=== PATIENT | female | born 1955 | race Hispanic/Latino ===

== ENCOUNTER 2017-10-03 14:24 | Emergency (ER) | payer OTHER, SELFPAY ==
[2017-10-03 15:00] LABS: BASOPHILS % (AUTO) 0.6 % (0.0-5.0); EOSINOPHILS % (AUTO) 2.2 % (0.0-8.0); LYMPHOCYTES % (AUTO) 35.8 % (21.0-51.0); MEAN CORPUSCULAR HEMOGLOBIN 30.6 pg (27.0-33.0); MEAN CORPUSCULAR HGB CONC 34.9 g/dL (32.0-36.0); MEAN CORPUSCULAR VOLUME 87.8 fL (79-99); MONOCYTES % (AUTO) 8.7 % (3.0-13.0); NEUTROPHILS % (AUTO) 52.7 % (40.0-77.0); PLATELET COUNT (AUTO) 254 K/uL (130-400); RED BLOOD CELL COUNT(AUTO) 4.67 MIL/uL (4.00-5.50); RED CELL DISTRIBUTION WIDTH 12.8 % (11.0-15.5); WHITE BLOOD COUNT (AUTO) 6.7 K/uL (4.8-10.8)
[2017-10-03 15:12] LABS: CREATININE 0.8 mg/dL (0.5-1.5); POTASSIUM 3.7 mmol/L (3.5-5.1)
[2017-10-03 15:20] LABS: ALBUMIN 3.5 g/dL (3.5-5.0); BILIRUBIN,TOTAL 0.4 mg/dL (0.2-1.0); TOTAL PROTEIN, SERUM 7.6 g/dL (6.0-8.3)
[2017-10-03] MEDS ORDERED: SIMETHICONE 80 MG TAB.CHEW ONE (15:39)
[2017-10-03] MEDS ORDERED: HYOSCYAMINE SULFATE 0.125 MG TAB.SUBL SL ONE (15:39)
[2017-10-03] MEDS ORDERED: ONDANSETRON ODT 4 MG TAB ONE (15:40)
[2017-10-03 16:06] LABS: APPEARANCE,URINE Clear (CLEAR); BILIRUBIN,URINE Negative (NEGATIVE); COLOR,URINE Yellow (YELLOW); GLUCOSE, URINE (UA) Negative (NEGATIVE); KETONES,URINE Negative (NEGATIVE); LEUKOCYTE ESTERASE ,URINE Negative (NEGATIVE); NITRATE,URINE Negative (NEGATIVE); OCCULT BLOOD,URINE Negative (NEGATIVE); PH,URINE 6.5 (5.0-8.0); PROTEIN,URINE Negative (NEGATIVE); UROBILINOGEN,URINE 0.2 mg/dL (0.2-1.0)
== END 2017-10-03 16:43 | disposition home or self-care (01) ==
LOC: EDH 14:24
DX: J02.9 Acute pharyngitis, unspecified (principal); R19.7 Diarrhea, unspecified; R11.0 Nausea; E11.9 Type 2 diabetes mellitus without complications; Z88.8 Allergy status to other drugs, medicaments and biological substances
CPT/HCPCS: 36415; 80053; 81003; 83690; 85025; 87880; 93005

== ENCOUNTER 2018-11-13 03:18 | Emergency (ER) | payer OTHER ==
[2018-11-13 04:02] LABS: APPEARANCE,URINE Clear (CLEAR); BILIRUBIN,URINE Negative (NEGATIVE); COLOR,URINE Yellow (YELLOW); GLUCOSE, URINE (UA) TRACE mg/dL (NEGATIVE); KETONES,URINE Negative (NEGATIVE); LEUKOCYTE ESTERASE ,URINE Negative (NEGATIVE); NITRATE,URINE Negative (NEGATIVE); OCCULT BLOOD,URINE Negative (NEGATIVE); PH,URINE 7.5 (5.0-8.0); PROTEIN,URINE Negative (NEGATIVE); UROBILINOGEN,URINE 0.2 mg/dL (0.2-1.0)
[2018-11-13 04:02] LABS: BASOPHILS % (AUTO) 0.7 % (0.0-5.0); EOSINOPHILS % (AUTO) 1.5 % (0.0-8.0); LYMPHOCYTES % (AUTO) 23.9 % (21.0-51.0); MEAN CORPUSCULAR HEMOGLOBIN 31.5 pg (27.0-33.0); MEAN CORPUSCULAR HGB CONC 35.4 g/dL (32.0-36.0); MEAN CORPUSCULAR VOLUME 88.9 fL (79-99); MONOCYTES % (AUTO) 5.6 % (3.0-13.0); NEUTROPHILS % (AUTO) 68.3 % (40.0-77.0); NUCLEATED RED BLOOD CELLS 0.1 % (0.0-0.19); PLATELET COUNT (AUTO) 260 K/uL (130-400); RED BLOOD CELL COUNT(AUTO) 4.72 MIL/uL (4.00-5.50); RED CELL DISTRIBUTION WIDTH 12.7 % (11.0-15.5); WHITE BLOOD COUNT (AUTO) 10.1 K/uL (4.8-10.8)
[2018-11-13 04:15] LABS: CREATININE 0.6 mg/dL (0.5-1.5); POTASSIUM 3.9 mmol/L (3.5-5.1)
[2018-11-13 04:16] LABS: INR 0.95 (0.85-1.15); PARTIAL THROMBOPLASTIN TIME 27.3 SEC (26.3-35.5)
[2018-11-13 04:20] LABS: ALBUMIN 3.8 g/dL (3.5-5.0); BILIRUBIN,TOTAL 0.3 mg/dL (0.2-1.0); TOTAL PROTEIN, SERUM 7.7 g/dL (6.0-8.3)
[2018-11-13] MEDS ORDERED: HYOSCYAMINE SULFATE 0.125 MG TAB.SUBL SL ONE (05:05)
[2018-11-13] MEDS ORDERED: ACETAMINOPHEN EXTRA STRENGTH 500 MG TABLET ONE (05:57)
== END 2018-11-13 06:18 | disposition home or self-care (01) ==
LOC: EDH 03:18
DX: R10.84 Generalized abdominal pain (principal); E11.65 Type 2 diabetes mellitus with hyperglycemia; M19.90 Unspecified osteoarthritis, unspecified site; Z88.8 Allergy status to other drugs, medicaments and biological substances; Z90.710 Acquired absence of both cervix and uterus
CPT/HCPCS: 36415; 74176; 80053; 81003; 82150; 82550; 83690; 84484; 85025; 85610; 85730; 93005; 96360

== ENCOUNTER → 2021-01-06 | Outpatient (CLI) | payer OTHER | END | disposition home or self-care (01) | LOC: OIH 14:27 | PROVIDERS: ATTEND Internal Medicine | DX: M79.672 Pain in left foot (principal) | CPT/HCPCS: 73620 ==

== ENCOUNTER → 2022-02-02 | Outpatient (CLI) | payer OTHER | END | disposition home or self-care (01) | LOC: RAH 12:12 | PROVIDERS: ATTEND Internal Medicine | DX: M70.42 Prepatellar bursitis, left knee (principal) | CPT/HCPCS: 76882 ==

== ENCOUNTER 2024-10-06 12:08 | Emergency (ER) | payer OTHER ==
[~2024-10-06] VITALS: Ht 160 cm; Wt 67.6 kg
--- NOTE | 2024-10-06 12:33 | ERN ---
General Chief Complaint: Headache Stated Complaint: HEADACHE Time Seen by MD: 12:12 History of Present Illness Initial Comments 69F presents for ROCK x 1 month. She reports that about a month ago she had a diarrheal illness with vomiting. The symptoms resolved, but since then she has been having headaches. Most days. She describes the pain as moderate, bilateral temporal region. She denies vision changes or vomiting. She had denies neck stiffness or back pain. She denies any falls or trauma. She denies any focal neurologic deficits. She denies blood thinners. No recent viral URI type symptoms. No sore throat. She reports that the pain comes and goes sporadically. She has been taking [id number] Tylenol which provides some relief then the pain returns. She went to her PCP and was told to take OTC medications as needed. Allergies: Coded Allergies: No Known Drug Allergies (Unverified Allergy, Unknown, 10/06/24) Home Meds Active Scripts Butalb/Acetaminophen/Caffeine (Fioricet) 50 Mg-325 Mg-40 Mg Tab, 1 TAB PO QID PRN for headache for 10 Days, #30 TAB Prov:MARY BETH SHAW 10/06/24 Past Medical History Past Medical History: Diabetes-Type II Past Surgical History: Hysterectomy Surgical History Other: ABD HERNIA REPAIR ROS Dictation CONSTITUTIONAL: No chills, no fever, no weakness, no diaphoresis, no malaise. HEAD/FACE: No signs of trauma. EENT: No eye pain, no blurred vision, no tearing, no double vision, no ear pain, no ear discharge, no nose pain, no nasal congestion, no throat pain, no throat swelling, no mouth pain. RESPIRATORY: No cough, no orthopnea, no SOB, no stridor, no wheezing. CARDIOVASCULAR: No chest pain, no edema, no palpitations, no syncope. GASTROINTESTINAL/ABDOMINAL: No abdominal pain, no constipation, no diarrhea, no nausea, no vomiting. GENITOURINARY: No abnormal discharge, no dysuria, no frequent urination, no hematuria. No complaints of pain in the genitals. MUSCULOSKELETAL: No back pain, no gout, no joint pain, no joint swelling, no muscle pain, no muscle stiffness, no neck pain. INTEGUMENTARY: No change in color, no change in hair/nails, no dryness, no lesion, no lumps, no rash. NEUROLOGICAL/PSYCH: Headache HEMATOLOGIC/LYMPHATIC: Not anemic, no history of blood clots, no apparent bleeding, no bruising, glands not swollen. All Systems Negative, Except as Noted. Physical Exam Physical Exam Dictation VITAL SIGNS: Reviewed. GENERAL APPEARANCE: Alert, oriented x3, no acute distress. HEAD AND FACE: Non-traumatic. EYES: PERRL, pink conjunctivas, eyelid no trauma, anterior chamber clear. EARS: Pinnas intact and no signs of trauma or erythema. Ear canals clear and no discharge. TMs no erythema. NOSE: No discharge, no bleeding. OROPHARYNX: Mouth normal, teeth no caries, tongue pink. Pharynx clear, no erythema. Tonsils no exudates, no abscesses noted. Mucous membrane moist. NECK: Supple, non-tender, no thyromegaly, no masses, no JVD, no bruits. BREAST: Deferred. CHEST: No tenderness, no crepitus, no paradoxical movement, no retractions. LUNGS: Clear, well-ventilated, symmetric, no rales, no wheezing, no rhonchi, no stridor, good breath sounds bilaterally. HEART: Regular rate, regular rhythm, no murmur, no gallops. VASCULAR: No peripheral edema. ABDOMEN: Soft, positive bowel sounds, nondistended, no guarding, nontender, no rebound, no masses no hepatomegaly, no splenomegaly, no Velasquez's sign, no hernias. RECTAL: Deferred. GENITAL: Deferred. NEUROLOGICAL: Normal speech, gross motor function intact, gross sensory function intact. MUSCULOSKELETAL: Neck nontender, full range of motion, back nontender, full range of motion. EXTREMITIES: Nontender, full range of motion. SKIN: Color pink, dry, no turgor, no rash, no lacerations, no abrasions, no contusions. LYMPHATICS: Deferred. Results Laboratory and Microbiology Lab and Micro Result Laboratory Tests Test 10/06/24 13:10 White Blood Count 6.8 K/uL (4.8-10.8) Red Blood Count 4.87 MIL/uL (4.00-5.50) Hemoglobin 14.8 g/dL (12.0-16.0) Hematocrit 43.9 % (36-48) Mean Corpuscular Volume 90.1 fL (79-99) Mean Corpuscular Hemoglobin 30.4 pg (27.0-33.0) Mean Corpuscular Hemoglobin Concent 33.7 g/dL (32.0-36.0) Red Cell Distribution Width 12.3 % (11.0-15.5) Platelet Count 216 K/uL (130-400) Mean Platelet Volume 10.0 fL (7.5-10.5) Immature Granulocyte % (Auto) 0.1 % (0-1) Neutrophils (%) (Auto) 56.6 % (40.0-77.0) Lymphocytes (%) (Auto) 34.1 % (21.0-51.0) Monocytes (%) (Auto) 6.3 % (3.0-13.0) Eosinophils (%) (Auto) 2.6 % (0.0-8.0) Basophils (%) (Auto) 0.3 % (0.0-5.0) Neutrophils # (Auto) 3.9 K/uL (1.8-7.7) Lymphocytes # (Auto) 2.3 K/uL (1.0-4.8) Monocytes # (Auto) 0.4 K/uL (0.1-1.0) Eosinophils # (Auto) 0.18 K/uL (0.00-0.70) Basophils # (Auto) 0.02 K/uL (0.00-0.20) Absolute Immature Granulocyte (auto 0.01 K/uL (0-1) Nucleated Red Blood Cells 0.0 % (0.0-0.19) Erythrocyte Sedimentation Rate 4 MM/HR (0-30) Prothrombin Time 11.1 SEC (9.6-11.6) Prothromb Time International Ratio 1.05 (0.85-1.15) Activated Partial Thromboplast Time 25.6 SEC (26.3-35.5) L Sodium Level 134 mmol/L (136-145) L Potassium Level 3.9 mmol/L (3.5-5.1) Chloride Level 101 mmol/L (101-111) Carbon Dioxide Level 24 mmol/L (21-32) Blood Urea Nitrogen 9 mg/dL (7-18) Creatinine 0.6 mg/dL (0.5-1.0) Glomerular Filtration Rate Calc 97 mL/min (>90) Random Glucose 169 mg/dL (70-105) H Total Calcium 9.1 mg/dL (8.5-10.1) Total Creatine Kinase 105 U/L (21-232) # Troponin I High Sensitivity 4.5 ng/L (4-50) C-Reactive Protein, Quantitative 1.70 mg/L (0.5-3.0) B-Type Natriuretic Peptide 41 pg/mL (0-100) MDM CC: Headache times a month Historian: Patient Comorbidities: Diabetes Limitations by social determinants of health: None Differential diagnosis: Benign headache, subarachnoid bleed, tumor, electrolyte abnormality, infection, other Labs (independently ordered and interpreted by me ): CBC is normal no leukocytosis or anemia. Sed rate is normal. CRP is normal. Electrolytes normal. CK normal. Troponin normal. BNP normal. Coags normal. Imaging. CT head without contrast ( independently interpreted by me ): No acute bleeding or major abnormalities. EKG: Sinus rhythm rate of 69 normal axis good R-wave progression intervals stable no STEMI. Treatment in ED: 1 L lactated Ringer's, 15 mg IV Toradol, 5 mg Reglan IV, 15 mg IV diphenhydramine, 4 mg IV dexamethasone, 1 g of Tylenol. Re-evaluation: Symptoms have improved. She reports almost no headache currently. Discussed the plan with the patient. I do not see any signs of stroke, tumors, major electrolyte abnormalities, unstable vital signs, or any other life- threatening pathology. It was no obvious source but she does have some neck stiffness and discomfort related to the headache, so I suspect the patient was having tension headaches. Plan: We will DC with a prescription with Fioricet recommend PCP follow up. Patient agrees with the plan. ED Course Orders Procedure Category Date Status Time Cardiac Panel LAB 10/06/24 Complete 12:20 Cbc With Differential LAB 10/06/24 Complete 12:20 Basic Metabolic Panel LAB 10/06/24 Complete 12:20 B-Type Natriuretic LAB 10/06/24 Complete Peptide 12:20 Prothrombin Time With LAB 10/06/24 Complete INR 12:20 Partial LAB 10/06/24 Complete Thromboplastin Time 12:20 Crp Quantitative LAB 10/06/24 Complete 12:20 Erythrocyte LAB 10/06/24 Complete Sedimentation Rate 12:20 Ct Head/Brain W/O CT 10/06/24 Resulted Contrast 12:20 Lactated Ringers PHA 10/06/24 Complete 1000ml (Lactated 12:30 Ketorolac PHA 10/06/24 Complete Tromethamine 15mg/Ml 12:30 Metoclopramide 10 PHA 10/06/24 Complete Mg/2 Ml Vial (Reglan 1 14:30 Diphenhydramine Hcl PHA 10/06/24 Complete (Benadryl Inj) 14:30 Dexamethasone 4mg/Ml PHA 10/06/24 Complete 1ml Vial (Dexametha 14:30 Acetaminophen 500mg PHA 10/06/24 Complete Tab (Tylenol 500mg T 14:30 12 Lead Ekg Tracing- EKG 10/06/24 Complete Technical 14:49 Chest 1vw RAD 10/06/24 Resulted 14:49 Current Medications Medications (Trade) Dose Ordered Sig/Kinsey Route PRN Reason Start Time Stop Time Status Last Admin Dose Admin Acetaminophen (TYLenol 500MG TAB) 1,000 mg ONCE ONCE PO 10/06/24 14:30 10/06/24 14:31 DC 10/06/24 14:34 Dexamethasone Sodium Phosphate (dexaMETHasone 4MG/ML 1ML VIAL) 4 mg ONCE ONCE IV 10/06/24 14:30 10/06/24 14:31 DC 10/06/24 14:29 Diphenhydramine HCl (BENAdryl INJ) 12.5 mg ONCE ONCE IV 10/06/24 14:30 10/06/24 14:31 DC 10/06/24 14:33 Ketorolac Tromethamine (toRADol) 15 mg ONCE ONCE IV 10/06/24 12:30 10/06/24 12:31 DC 10/06/24 13:21 Lactated Ringer's 1,000 ml @ 0 mls/hr ONCE ONCE IV 10/06/24 12:30 10/06/24 12:31 DC 10/06/24 13:24 Metoclopramide HCl (regLAN 10MG IV) 5 mg ONCE ONCE IVP 10/06/24 14:30 10/06/24 14:31 DC 10/06/24 14:30 Vital Signs Date Time Temp Pulse Resp B/P (MAP) Pulse Ox O2 Delivery O2 Flow Rate FiO2 10/06/24 15:32 97.9 70 18 131/59 99 Room Air* 0 21 10/06/24 12:12 97.9 72 18 136/58 99 Room Air DX & DISP Disposition: Discharge Departure Impression: Primary Impression: Tension headache Condition: Stable Scripts Butalb/Acetaminophen/Caffeine (Fioricet) 50 Mg-325 Mg-40 Mg Tab 1 TAB PO QID PRN for headache for 10 Days, #30 TAB Prov: MARY BETH SHAW DO 10/06/24 Additional Instructions: Your symptoms are consistent with a benign headache. The CT scan of your brain is unremarkable. You EKGs normal. Your blood work ( CBC, BMP, CK, CRP, ESR, troponin, coags) is unremarkable. You received IV fluids, Toradol, Reglan, diphenhydramine, dexamethasone, and Tylenol here in the ER. I have prescribed Fioricet, which is a headache medication. You can take two tabs 4 times a day as needed. Take this medicine with a glass of water. Please follow up with the primary doctor regarding your symptoms if they continue. Return to the emergency department as needed. Referrals: APRIL CUNNINGHAM MD (PCP) MARY BETH SHAW DO Oct 06, 2024 12:33
[2024-10-06] MEDS: ketOROlac 15MG/ML VIAL (15MG/ML) IV ONE (13:21)
[2024-10-06 13:24] LABS: BASOPHILS # (AUTO) 0.02 K/uL (0.00-0.20); BASOPHILS % (AUTO) 0.3 % (0.0-5.0); EOSINOPHILS # (AUTO) 0.18 K/uL (0.00-0.70); EOSINOPHILS % (AUTO) 2.6 % (0.0-8.0); HEMATOCRIT 43.9 % (36-48); IMMATURE GRANULOCYTE ABSOLUTE 0.01 K/uL (0-1); LYMPHOCYTES # (AUTO) 2.3 K/uL (1.0-4.8); LYMPHOCYTES % (AUTO) 34.1 % (21.0-51.0); MEAN CORPUSCULAR HEMOGLOBIN 30.4 pg (27.0-33.0); MEAN CORPUSCULAR HGB CONC 33.7 g/dL (32.0-36.0); MEAN CORPUSCULAR VOLUME 90.1 fL (79-99); MONOCYTES # (AUTO) 0.4 K/uL (0.1-1.0); MONOCYTES % (AUTO) 6.3 % (3.0-13.0); NEUTROPHILS # (AUTO) 3.9 K/uL (1.8-7.7); NEUTROPHILS % (AUTO) 56.6 % (40.0-77.0); PLATELET COUNT (AUTO) 216 K/uL (130-400); RED BLOOD CELL COUNT(AUTO) 4.87 MIL/uL (4.00-5.50); RED CELL DISTRIBUTION WIDTH 12.3 % (11.0-15.5); WHITE BLOOD COUNT (AUTO) 6.8 K/uL (4.8-10.8)
[2024-10-06] MEDS: LACTATED RINGERS 1000ML 1,000 ML IV ONE (13:24)
--- NOTE | 2024-10-06 13:25 | HMCIMG ---
CT HEAD WITHOUT CONTRAST INDICATION: Headache TECHNIQUE: Noncontrast axial helical CT images from the vertex through the skull base using 5 mm slice thickness without contrast material. Coronal and sagittal reconstructions were also included. Dose reduction techniques was used using integrated, automated and adaptive dose reduction exposure control. CT was performed with one or more of the following dose reduction techniques: Automated exposure control, adjustment of the mA and/or kV according to patient size, or use of iterative reconstruction technique. COMPARISON: None FINDINGS: Scattered and coalescent subcortical and periventricular white matter low attenuating areas likely represent residual of chronic small vessel arteriopathy and/or remote vascular insult. Generalized mild cerebral cortical atrophy is present.. No evidence for abnormal extra-axial fluid collections or masses. The ventricles and sulci are normal in size and configuration. No evidence for intracranial parenchymal, epidural, or subdural hemorrhage, mass effect or midline shift. The gee-white matter differentiation is well preserved. No secondary evidence to suggest acute ischemia. Mild calcific plaque is present along the berry of the cavernous segments of both internal carotid arteries. The brainstem and cerebellum appear normal. The visualized orbits appear unremarkable. The visible paranasal sinuses and mastoid air cells are clear. The calvarium appears normal. IMPRESSION: Chronic white matter ischemic changes, mild brain atrophy, and arteriosclerotic disease as described, without acute component.
[2024-10-06 13:39] LABS: CREATININE 0.6 mg/dL (0.5-1.0); INR 1.05 (0.85-1.15); POTASSIUM 3.9 mmol/L (3.5-5.1); PROTHROMBIN TIME 11.1 SEC (9.6-11.6)
[2024-10-06 13:40] LABS: PARTIAL THROMBOPLASTIN TIME 25.6 SEC (26.3-35.5)
[2024-10-06 13:59] LABS: B-TYPE NATRIURETIC PEPTIDE 41 pg/mL (0-100)
[2024-10-06] MEDS: dexaMETHasone SOD PHOSPHATE 4 MG/ML 1ML VIAL IV ONE (14:29)
[2024-10-06] MEDS: metoCLOPRAmide 10 MG/2 ML VIAL IVP ONE (14:30)
[2024-10-06] MEDS: DiphenhydrAMINE HCL 50 MG/ML VIAL IV ONE (14:33)
[2024-10-06] MEDS: acetaMINOPHEN 500 MG TABLET PO ONE (14:34)
[2024-10-06 14:42] LABS: ERYTHROCYTE SEDIMENTATION RATE 4 MM/HR (0-30)
--- NOTE | 2024-10-06 14:58 | EKG ---
[facility] Test Date: 2024-10-06 Test Time: 14:56:47 Pat Name: EMIL HARTMAN Department: ED Room: Gender: F Service Dismantler: [id number] : 1955 Requested By: MARY BETH SHAW Order Number: [id number] Reading MD: Pilar Luong Measurements Intervals Jackson Rate: 61 P: 62 OK: 164 QRS: 49 QRSD: 90 T: 27 QT: 443 QTc: 446 Interpretive Statements Sinus rhythm Anteroseptal infarct, age indeterminate Compared to ECG 11/13/2018 04:10:08 Myocardial infarct finding now present Electronically Signed On 10-07-2024 16:48:37 CDT by Pilar Luong Please click the below link to view image of tracing.
[2024-10-06] MEDS ORDERED: FIORIT PO (15:15)
[2024-10-06 15:32] VITALS: BP 131/59; PULSE 70; RESP 18; TEMP 97.9; O2SAT 99
--- NOTE | 2024-10-06 15:34 | HMCIMG ---
PORTABLE CHEST RADIOGRAPH INDICATION: chest pain/back pain COMPARISON: 04/08/2012 FINDINGS: Heart size is normal. The pulmonary vascularity and humaira appear normal. No abnormal pulmonary parenchymal opacity or consolidation identified. No significant pleural effusion noted. No pneumothorax detected. IMPRESSION: No radiographic evidence for any acute cardiopulmonary process.
== END 2024-10-06 15:41 | disposition home or self-care (01) ==
LOC: EDH 12:08
DX: G44.209 Tension-type headache, unspecified, not intractable (principal); E11.9 Type 2 diabetes mellitus without complications; Z79.01 Long term (current) use of anticoagulants; Z90.710 Acquired absence of both cervix and uterus; Z98.890 Other specified postprocedural states
CPT/HCPCS: 99285; 96374; 96375; 70450; 96361; 71045; 82550; 84484; 80048; 83880; 85025; 85610; 85730; 85651; 86140; 36415; 93005; J1100; J1885; J7120; J1200; J2765

== ENCOUNTER → 2024-10-19 | Outpatient (CLI) | payer OTHER ==
[~2024-10-19] MED LIST: FIORIT PO
--- NOTE | 2024-10-19 13:32 | HMCIMG ---
CT ABDOMEN/PELVIS W/O CONTRAST HISTORY: Diverticula COMPARISON: 11/13/2018 TECHNIQUE: Multiple sequential axial images of the abdomen and pelvis were obtained from the dome of the diaphragm through symphysis pubis. Patient was not given contrast through intravenous route. Oral contrast was not given. FINDINGS: No pleural effusion is seen bilaterally. There is no evidence of parenchymal disease or pulmonary nodule of the visualized lower lungs. Degenerative changes of the thoracolumbar spine are present. The heart is not enlarged. Liver measures 19 cm. Calcified granuloma are seen in the spleen. Gallstones versus sludge material is seen in the gallbladder. Minimal small bowel dilatation is seen with fluid-filled may be related to enteritis. The liver, spleen, adrenal glands and pancreas are unremarkable. There is no evidence of hydronephrosis bilaterally. No evidence of renal stone is seen. Fecal material is seen in the colon. There are normal size retroperitoneal and mesenteric lymph nodes. No ascites is seen. No CT evidence of acute appendicitis is seen. There is diverticulosis. Hyperdense material is seen in the right pelvis present on previous study unchanged. Pelvic sidewalls are symmetric bilaterally. Bladder is well distended without wall thickening. IMPRESSION: 1. Gallstone versus sludge material in the gallbladder. 2. Minimal small bowel dilatation. 3. Diverticulosis. CT was performed with one or more following dose reduction techniques: automated exposure control, adjustment of the mA and kv according to patient's size, or use of a iterative reconstruction technique.
== END | disposition home or self-care (01) ==
LOC: RAH 09:16
PROVIDERS: ATTEND Internal Medicine
DX: K57.92 Diverticulitis of intestine, part unspecified, without perforation or abscess without bleeding (principal); M47.815 Spondylosis without myelopathy or radiculopathy, thoracolumbar region; D73.89 Other diseases of spleen
CPT/HCPCS: 74176